=== PATIENT | male | born 1995 | race Caucasian/White ===

== ENCOUNTER 2018-08-04 01:56 | Emergency (ER) | payer SELFPAY ==
[~2018-08-04] VITALS: Ht 195.6 cm; Wt 95.3 kg
[2018-08-04 02:05] VITALS: Ht 195.6 cm; Wt 95.3 kg
[2018-08-04 06:17] VITALS: BP 140/72
== END 2018-08-04 06:17 | disposition home or self-care (01) ==
LOC: ED 01:56
DX: F10.129 Alcohol abuse with intoxication, unspecified (principal)
CPT/HCPCS: J3411; J3475; J3490; J7030